=== PATIENT | male | born 1950 | race African-American/Black ===

== ENCOUNTER 2019-06-12 13:15 | Inpatient (IN) | payer OTHER | END 2019-06-16 12:22 | disposition home or self-care (01) | LOC: ER 13:15 → TELE-WESTW 20:31 → TELE 13:16 → TELE-WESTW 20:33 | DX: D50.9 Iron deficiency anemia, unspecified (principal); E44.0 Moderate protein-calorie malnutrition; K76.6 Portal hypertension; N18.3 Chronic kidney disease, stage 3 (moderate); E11.22 Type 2 diabetes mellitus with diabetic chronic kidney disease; I12.9 Hypertensive chronic kidney disease with stage 1 through stage 4 chronic kidney disease, or unspecified chronic kidney disease; M19.90 Unspecified osteoarthritis, unspecified site; M10.9 Gout, unspecified; K31.89 Other diseases of stomach and duodenum; F10.10 Alcohol abuse, uncomplicated ==

== ENCOUNTER 2019-10-04 09:02 | Inpatient (IN) | payer OTHER ==
[~2019-10-04] VITALS: Ht 167.6 cm; Wt 66.5 kg
[~2019-10-04 09:02] MED LIST: ALL100T PO; FERR325T20 PO; HYDR-4072 PO; HYDR-4296 PO; OMEP20TA PO
[2019-10-04 10:35] LABS: Basophils # (auto) 0.1 uL; Basophils % (auto) 0.8 % (0.0-2.0); Eosinophils # (auto) 0.1 uL; Eosinophils % (auto) 0.7 % (0.0-7.0); Hemoglobin 8.5 g/dL (13.5-17.5); Lymphocytes # (auto) 2.4 uL; Lymphocytes % (auto) 28.4 % (10.0-50.0); Mean Corpuscular Hemoglobin 31.8 pg (28.0-32.0); Mean Corpuscular Hgb Conc. 32.6 g/dL (32.0-36.0); Mean Corpuscular Volume 97.3 fL (80.0-100.0); Monocytes # (auto) 0.6 uL; Monocytes % (auto) 6.6 % (0.0-12.0); Neutrophils # (auto) 5.4 uL; Neutrophils % (auto) 63.5 % (37.0-80.0); Nucleated Red Blood Cells % 0.2 %; Platelet Count (auto) 148 10^3/uL (140-450); Red Blood Cells 2.67 10^6/uL (4.5-5.90); Red Cell Distribution Width 16.4 % (11.8-14.3); White Blood Cell 8.5 10^3/uL (4.4-10.8)
[2019-10-04 10:51] LABS: Albumin 1.7 g/dL (3.4-5.0); BUN/Creatinine Ratio 8.1; Calcium 7.7 mg/dL (8.5-10.1); Potassium 3.2 mmol/L (3.5-5.1)
[2019-10-04 10:52] LABS: Blood Alcohol < 3.0 mg/dL (0-5); Magnesium 1.6 mg/dL (1.6-2.6)
[2019-10-04 10:54] LABS: Bilirubin, Total 1.4 mg/dL (0.2-1.0); Total Protein 6.1 g/dL (6.4-8.2)
[2019-10-04 11:32] LABS: Urine Bacteria MOD /hpf (None Seen); Urine Blood Negative /uL (Negative); Urine Hyaline Cast MANY /lpf (0 - 2); Urine Mucus FEW (None Seen); Urine Specific Gravity 1.013 (1.001-1.035); Urine WBC 69 /hpf (0 - 3)
[2019-10-04 11:43] LABS: Amphetamine Screen, Urine NEGATIVE (NEGATIVE); Barbiturate Scree,Urine NEGATIVE (NEGATIVE); Benzodiazephine Screen, Urine NEGATIVE (NEGATIVE); Cannabinoid Screen, Urine NEGATIVE (NEGATIVE); Cocaine Screen, Urine NEGATIVE (NEGATIVE); Opiate Scree,Urine POSITIVE (NEGATIVE); Phencyclidine Screen, Urine NEGATIVE (NEGATIVE)
[2019-10-04] MEDS ORDERED: LEVOFLOXACIN 750MG 150 ML IV ONE (13:00)
[2019-10-04] MEDS ORDERED: POTASSIUM EFFERVESENT TAB 25 MEQ PO ONE (14:30)
[2019-10-04] MEDS ORDERED: LACTULOSE 20Gm/30ML SOLN PO PRN (14:30)
[2019-10-04] MEDS ORDERED: PROMETHAZINE HCL 25 MG/ML 1ML IV PRN (14:30)
[2019-10-04] MEDS ORDERED: NITROGLYCERIN 0.4 MG SL TAB SL PRN (14:30)
[2019-10-04] MEDS ORDERED: ALBUTEROL SULF 2.5 MG/0.5ML(0.5%) NEB SOLN NEB PRN (14:30)
[2019-10-04] MEDS: LACTULOSE 20Gm/30ML SOLN PO SCH ×2 (14:30→21:16)
[2019-10-04] MEDS ORDERED: MORPHINE SULF INJ 2 MG/ML SYRINGE 1ML IV PRN (14:30)
[2019-10-04] MEDS ORDERED: DEXTROSE (50%) 50ML SYRG IV PRN (14:30)
[2019-10-04] MEDS ORDERED: MORPHINE SULFATE 4 MG/ML SYR/VIAL IV PRN ×2 (14:30)
[2019-10-04] MEDS: SODIUM CHLORIDE 0.9% 1,000 ML IV SCH (14:45)
[2019-10-04] MEDS ORDERED: SODIUM CHLORIDE 0.9% 1,000 ML IV ONE (14:45)
[2019-10-04 14:56] LABS: Amylase 15 U/L (25-115); Lipase < 10 U/L (73-393)
[2019-10-04 15:08] LABS: INR 1.77 (0.9-1.15); Partial Thromboplastin Time 38.3 sec (23.64-32.05)
[2019-10-04 15:21] VITALS: BP 124/76
[2019-10-04] MEDS: metroNIDAZOLE 500 MG TAB PO SCH ×2 (16:22→21:17)
--- NOTE | 2019-10-04 18:10 | NUR ---
Telemetry admit from ER Patient admitted to Telemetry unit after SBAR received from [facility]. Patient oriented to primary RN, unit, room, bed, and unit policies regarding patient care and visiting hours. Patient now on continuous telemetry monitoring, tele box #78 and telemetry reading on arrival to unit is SR in the 90's.Bed in lowest, locked position with side rails up x2. Fall precautions in place and call light within reach. Encouraged patient to call if they need something, verbalized understanding. All questions and concerns addressed.Will continue to monitor patient Q1hr/PRN.
[2019-10-04] MEDS: InsuLIN REG 1unit/0.01ml Soln (100units/ml) SC SCH ×2 (18:23→21:18)
[2019-10-04] MEDS: ACCU-CHEK COMFORT CURVE STRIP VI SCH ×2 (18:23→21:18)
[2019-10-04] MEDS: ALBUTEROL SULF 2.5 MG/0.5ML(0.5%) NEB SOLN NEB SCH (18:37)
[2019-10-04] MEDS ORDERED: GABA300C10 PO (18:55)
--- NOTE | 2019-10-04 19:10 | NUR ---
WOUND PHOTO Wound photos taken.
--- NOTE | 2019-10-04 19:20 | NUR ---
Opening Shift Note Assumed care of patient, awake and alert. No S/S of distress/SOB or pain. Instructed on POC and to call for assist if needed. Call light placed in reach of patient and explained. Patient is currently laying in bed with the rails up x2, bed is locked in the lowest position. Will continue to monitor.
--- NOTE | 2019-10-04 19:25 | NUR ---
CLOSING NOTE Endorsed care of patient to NOC Shakeel GREGORY.
[2019-10-04] MEDS ORDERED: INFLUENZA QUAD 2019-2020 0.5ml SYRG IM ONE (19:30)
[2019-10-04] MEDS: CARVEDILOL 3.125 MG TAB PO SCH (21:17)
[2019-10-04 22:00] VITALS: BP 110/66
--- NOTE | 2019-10-05 00:09 | NUR ---
PT REFUSED MED NEB AT THIS TIME, REQUESTED TO CONTINUE TO SLEEP. NO DISTRESS NOTED AT THIS TIME.
[2019-10-05] MEDS: SODIUM CHLORIDE 0.9% 1,000 ML IV SCH ×2 (00:34→08:46)
[2019-10-05] MEDS: LACTULOSE 20Gm/30ML SOLN PO SCH ×3 (02:30→13:06)
[2019-10-05 05:00] VITALS: BP 103/64
[2019-10-05 05:49] LABS: Potassium 3.4 mmol/L (3.5-5.1)
[2019-10-05 05:52] LABS: Albumin 1.4 g/dL (3.4-5.0); BUN/Creatinine Ratio 9.4; Bilirubin, Total 0.9 mg/dL (0.2-1.0)
[2019-10-05] MEDS: metroNIDAZOLE 500 MG TAB PO SCH ×2 (06:00→13:06)
[2019-10-05] MEDS: ACCU-CHEK COMFORT CURVE STRIP VI SCH ×3 (06:06→18:11)
[2019-10-05] MEDS: InsuLIN REG 1unit/0.01ml Soln (100units/ml) SC SCH ×3 (06:06→17:00)
[2019-10-05] MEDS: ALBUTEROL SULF 2.5 MG/0.5ML(0.5%) NEB SOLN NEB SCH ×4 (06:13→19:14)
--- NOTE | 2019-10-05 06:41 | NUR ---
Scheduled 12 lead EKG performed and placed in chart.
[2019-10-05 07:21] LABS: Basophils # (auto) 0 uL; Basophils % (auto) 0.6 % (0.0-2.0); Eosinophils # (auto) 0 uL; Eosinophils % (auto) 0.8 % (0.0-7.0); Hematocrit 21.5 % (41.0-53.0); Hemoglobin 7.2 g/dL (13.5-17.5); Lymphocytes # (auto) 1.6 uL; Lymphocytes % (auto) 47.2 % (10.0-50.0); Mean Corpuscular Hemoglobin 31.8 pg (28.0-32.0); Mean Corpuscular Hgb Conc. 33.3 g/dL (32.0-36.0); Mean Corpuscular Volume 95.6 fL (80.0-100.0); Monocytes # (auto) 0 uL; Monocytes % (auto) 1.4 % (0.0-12.0); Neutrophils # (auto) 1.7 uL; Nucleated Red Blood Cells % 0.7 %; Platelet Count (auto) 123 10^3/uL (140-450); Red Blood Cells 2.25 10^6/uL (4.5-5.90); Red Cell Distribution Width 15.8 % (11.8-14.3); White Blood Cell 3.4 10^3/uL (4.4-10.8)
--- NOTE | 2019-10-05 08:51 | NUR ---
LOVENOX HELD, PLATELETS 123.
[2019-10-05 09:00] VITALS: BP 113/71
[2019-10-05] MEDS ORDERED: cefTRIAXone 1GM/50ML D5W 50 ML IV SCH (09:00)
[2019-10-05] MEDS ORDERED: ASPirin 81 mg TAB PO SCH (10:00)
[2019-10-05] MEDS ORDERED: AZITHROMYCIN 500MG/ 250ML 250 ML IV SCH (10:00)
[2019-10-05] MEDS ORDERED: ENOXAPARIN SOD 30 MG/0.3 ML SYRINGE SC SCH (10:00)
[2019-10-05] MEDS: CARVEDILOL 3.125 MG TAB PO SCH (10:08)
--- NOTE | 2019-10-05 10:19 | NUR ---
MEDICAL DECISIONS WAS CALLED INTO PATIENT ROOM BY ALISSA FATIMA. ALISSA FATIMA REPORTS PATIENT IS STILL LEGALLY TO MELISA AWAD, BUT WOULD LIKE HIS SON ODALYS AWAD TO MAKE ALL OF HIS MEDICAL DECISIONS. ALISSA ASKED PATIENT WHO HE WOULD LIKE TO MAKE HIS MEDICAL DECISIONS AGAIN, PATIENT REPORTS HE WANTS HIS SON ODALYS TO MAKE ALL HIS MEDICAL DECISIONS. MELISA AND ODALYS BOTH AT BEDSIDE. ODALYS AND MELISA CONFIRMED PATIENT WISHES.
[2019-10-05 11:25] LABS: Sodium Urine 19 mmol/L (40-220)
[2019-10-05 11:27] LABS: Creatinine, Urine 206 mg/dL (30.0-125.0)
--- NOTE | 2019-10-05 11:38 | NUR ---
DR REID SAW PATIENT AND DISCUSSED POC. NOTIFIED MD PT HGB 7.2. NOTIFIED MD PT HAS NECK PAIN. SENT URINE SAMPLE FOR DR CORTEZ. DR REID SPOKE WITH PATIENT FAMILY. MD REPORTS HE WILL PUT IN ORDERS.
--- NOTE | 2019-10-05 11:59 | NUR ---
Nutrition Consult/assessment Notes please see attached link for complete assessment Est. Needs BW 64 [id number] kcal (25-30 kcal/kgBW), 38-51 gms pro (0.6-0.8 gms/kgBW r/t elev ammonia). Will continue to monitor pertinent labs and reassess nutrient need prn Addendum: 10/05/19 at [address] Amended: Links added.
[2019-10-05] MEDS ORDERED: ALBUMIN 25% 50 ML IV SCH (12:15)
[2019-10-05] MEDS ORDERED: FUROSEMIDE 40 MG/4 ML VIAL IV ONE (12:15)
--- NOTE | 2019-10-05 12:28 | NUR ---
WOUND CARE NOTE: Wound care in to see patient per wound care request regarding wounds that are noted present on admission. Bedside nurse took photograph of patient's wounds upon admission for reference. Patient is 68 y/o male with admitting diagnosis of Hepatic Encephalopathy. Patient with history of DM, GERD, Gout, htn. Patient is resting in bed in Rm. 292A. Patient is awake,alert and able to verbalize needs. He's in no stated pain at this time and he appears to be in no pain using Scherer Joyner Faces Pain Scale. Patient needs assistance in turning and repositioning. His Vinnie score is 16. Skin/wound assessment done with assistance of patient's nurse, COLT Doyle. Patient's Lt and Rt. 2nd toe has dry/scabbed DFU, no drainage/odor noted,left open to air. Patient's sacrum has non-blanchable dark redness with small (0.5x0.5cm ) open partial thickness wound to Rt sacrum, consistent with Stage 3 pressure injury. On reports, patient found in his apartment, covered with urine and feces. mike care given, applied Z Guard cream and covered sacrum with Opti foam sacral dressing. Repositioned patient for comfort, patient tolerated well. Bed in low position, call light within reach, all safety precautions in placed. Family education given regarding skin/wound care, verbalized understanding. RECOMMENDATION: Daily/PRN dressing change to Lt and Rt 2nd toe resolving wound; BID/PRN cleaning and application of Z Guard cream to sacral, buttocks per MD order, Dietary consult, frequent turning and repositioning schedule as condition permits,redistribute pressure points with pillows, elevate heels on pillows,continue monitoring by wound care while patient is hospitalized. Addendum: 10/05/19 at 1654 by Jenelle Dow RN Amended: Links added.
--- NOTE | 2019-10-05 12:39 | NUR ---
SPOKE WITH DR CALDERON, NOTIFIED OF ABG RESULTS AND PO2 LEVEL. AWARE. PT TAKEN OFF . REPORTS TO CALL HER WITH RESULTS. Addendum: 10/05/19 at 1241 by JERED RUIZ RN WRONG PATIENT.
[2019-10-05] MEDS ORDERED: LEVOFLOXACIN 500MG 100 ML IV SCH (13:15)
[2019-10-05 13:17] VITALS: BP 95/51
--- NOTE | 2019-10-05 14:34 | NUR ---
I called [facility] [phone] and left message for department asking for assistance in transferring their patient back in network.
[2019-10-05] MEDS ORDERED: FOLIC ACID 1 MG, MULTIPLE VITAMIN 10 ML, MAGNESIUM SULF SDV 50% 8 MEQ, THIAMINE INJ 100... INJ SCH ×5 (15:30)
--- NOTE | 2019-10-05 15:45 | NUR ---
DR CARTER SAW PATIENT, NEW ORDERS FOR ECHO AND STRESS TEST, WILL CONTINUE TO MONITOR.
--- NOTE | 2019-10-05 16:14 | NUR ---
assessment re: ss consult lives alone, needs assistance Patient is a 68 year old male who is alert and oriented. Prior to admission patient lived home alone and needed assistance. Per patient he will need more help at home. Patient has a fww for home use. Patients son and are at bedside. Patient does not live with his Rosemary. Patient and Rosemary are . Patient informed me and RN Maribeth that if he cannot make decisions he wants his son Vitor to make decisions for him. I will provide patient with an advanced directive. Patient has an order to transfer in network. Patient agrees to transfer. Patients PCP is Dr Woods at [facility]. Patient makes 1,700 per month. Patient informed me he would like SNF [facility]hab [facility]. I informed patient he has a right to speak to a social media director regarding all care. I informed patient he has a right to participate in any and all discharge planning. Patient does not have a POA and advanced directive. I have offered patient information on POA and advanced directives. I informed the patient the advantages and benefits of having an Advanced Directive. Patient verbalized understanding and agreed to discharge plan. Addendum: 10/05/19 at 1619 by Mili CARTWRIGHT Amended: Links added.
[2019-10-05 17:00] VITALS: BP 94/55
--- NOTE | 2019-10-05 17:20 | NUR ---
I called [facility] ([facility]) [phone] and spoke with Jay-provided him with contact information for Dr. Crane as well as the nurse's station. I also provided him with authorization number provided to me by Cyndy at [facility] [id number].
--- NOTE | 2019-10-05 17:22 | NUR ---
I called [facility] (spoke with Davey) and placed them on will call pending transfer to [facility] auth number is [id number].
--- NOTE | 2019-10-05 19:01 | NUR ---
EDUCATED PT, PT HAS MALNUTRITION AND NEEDS THE VITAMINS AND NUTRIENTS, PT STILL REFUSED.
--- NOTE | 2019-10-05 19:01 | NUR ---
PT REFUSING VITAMIN BAG, PT REPORTS IT WILL INCREASE HIS BLOOD SUGAR.
--- NOTE | 2019-10-05 19:07 | NUR ---
RAISSA PERKINS CALLED, PT HAS A BED AT [facility], PT GOING TO ROOM [address] BED A, DR HILLARY MATHEWS ACCEPTING. PT AND FAMILY NOTIFIED. NO DC OR TRANSFER ORDERS. PAGED DR GEORGES FOR DC ORDERS. PUT IN IMAGE TRANSFER REQUEST, AWAITING DISC.
--- NOTE | 2019-10-05 19:20 | NUR ---
Opening Shift Note Assumed care of patient, awake and alert. No S/S of distress/SOB or pain. Instructed on POC and to call for assist if needed. Call light placed in reach of patient and explained. Patient is currently laying in bed with the rails up x2, bed is locked in the lowest position. Pt made aware of pending transfer to [facility]. Will continue to monitor.
--- NOTE | 2019-10-05 21:20 | NUR ---
Received telephone orders from Dr Beltran for medication transfer summary.
--- NOTE | 2019-10-05 21:30 | NUR ---
Made arrangements for [facility] transport. Julissa from [facility] gave ETA of greater than 2 hours.
--- NOTE | 2019-10-05 21:40 | NUR ---
Called report to Lizzy GREGORY at [facility].
[2019-10-05 21:45] VITALS: BP 94/57
[2019-10-05 22:00] VITALS: BP 94/57
[2019-10-05] MEDS ORDERED: PANTOPRAZOLE 40 MG TAB PO SCH (22:00)
--- NOTE | 2019-10-05 22:30 | NUR ---
DC Wound Photos taken
--- NOTE | 2019-10-05 23:15 | NUR ---
Pt taken by [facility] after all paperwork signed by patient, tele monitor was removed and patient was cleaned. Pt shows no s/s of distress upon leaving.
== END 2019-10-05 23:47 | disposition short-term general hospital (02) | DRG 441 ==
LOC: EDUNIT# 09:02 → EDBD 09:02 → ER 09:13 → TELE 09:14 → TELE-WESTW 18:17
PROVIDERS: ADMIT Internal Medicine; ATTEND Internal Medicine
DX: K72.90 Hepatic failure, unspecified without coma (principal); J18.9 Pneumonia, unspecified organism; N39.0 Urinary tract infection, site not specified; N17.9 Acute kidney failure, unspecified; E46 Unspecified protein-calorie malnutrition; I13.0 Hypertensive heart and chronic kidney disease with heart failure and stage 1 through stage 4 chronic kidney disease, or unspecified chronic kidney disease; I50.9 Heart failure, unspecified; E87.6 Hypokalemia; K76.0 Fatty (change of) liver, not elsewhere classified; D63.8 Anemia in other chronic diseases classified elsewhere; E11.22 Type 2 diabetes mellitus with diabetic chronic kidney disease; E86.0 Dehydration; K21.0 Gastro-esophageal reflux disease with esophagitis; N18.9 Chronic kidney disease, unspecified; R62.7 Adult failure to thrive; M10.9 Gout, unspecified; M19.90 Unspecified osteoarthritis, unspecified site; M47.812 Spondylosis without myelopathy or radiculopathy, cervical region; K21.9 Gastro-esophageal reflux disease without esophagitis; F10.20 Alcohol dependence, uncomplicated; Y90.9 Presence of alcohol in blood, level not specified; Z60.2 Problems related to living alone; K74.60 Unspecified cirrhosis of liver; G89.29 Other chronic pain; Z83.3 Family history of diabetes mellitus; Z87.891 Personal history of nicotine dependence; Z90.49 Acquired absence of other specified parts of digestive tract; Z79.899 Other long term (current) drug therapy; Z68.23 Body mass index [BMI] 23.0-23.9, adult
CPT/HCPCS: 36415; 71045; 76700; 80053; 80307; 80320; 81001; 82140; 82150; 82550; 82570; 82962; 83036; 83605; 83690; 83735; 83880; 83930; 84300; 84443; 84484; 84550; 85025; 85379; 85610; 85652; 85730; 86141; 87040; 93005; 93970; 94640; 96361; 96365; 96375; G0378; J0696; J1956

== ENCOUNTER 2020-01-07 21:33 | Inpatient (IN) | payer OTHER ==
[~2020-01-07] VITALS: Ht 167.6 cm; Wt 80.3 kg
[~2020-01-07 21:33] MED LIST changes: +GABA300C10 PO
[2020-01-07] MEDS ORDERED: SODIUM CHLORIDE 0.9% 500 ML IVB ONE (21:42)
[2020-01-07 22:30] LABS: Basophils # (auto) 0 uL; Basophils % (auto) 0.5 % (0.0-2.0); Eosinophils # (auto) 0 uL; Eosinophils % (auto) 0.4 % (0.0-7.0); Hematocrit 28.4 % (41.0-53.0); Hemoglobin 9.3 g/dL (13.5-17.5); Lymphocytes # (auto) 0.6 uL; Lymphocytes % (auto) 18.5 % (10.0-50.0); Mean Corpuscular Hemoglobin 30.7 pg (28.0-32.0); Mean Corpuscular Hgb Conc. 32.8 g/dL (32.0-36.0); Mean Corpuscular Volume 93.6 fL (80.0-100.0); Monocytes # (auto) 0.1 uL; Monocytes % (auto) 2.3 % (0.0-12.0); Neutrophils # (auto) 2.6 uL; Neutrophils % (auto) 78.3 % (37.0-80.0); Nucleated Red Blood Cells % 0.2 %; Platelet Count (auto) 121 10^3/uL (140-450); Red Blood Cells 3.04 10^6/uL (4.5-5.90); White Blood Cell 3.4 10^3/uL (4.4-10.8)
[2020-01-07 22:46] LABS: Alanine Aminotransferase 19 U/L (16-61); Albumin 1.2 g/dL (3.4-5.0); Anion Gap 8 (5-15); Aspartate Aminotransferase 68 U/L (15-37); BUN/Creatinine Ratio 12.2; Blood Alcohol < 3.0 mg/dL (0-5); Blood Urea Nitrogen 18 mg/dL (7-18); Calcium 7.6 mg/dL (8.5-10.1); Carbon Dioxide 25 mmol/L (21-32); Chloride 102 mmol/L (98-107); GFR African American 61 mL/min; GFR Non-African American 51 mL/min; Glucose 149 mg/dL (74-106); Magnesium 1.9 mg/dL (1.6-2.6); Potassium 3.6 mmol/L (3.5-5.1); Sodium 135 mmol/L (136-145)
[2020-01-07 22:48] LABS: Lactic Acid w/Reflex 2.6 mmol/L (0.4-2.0)
[2020-01-07 22:49] LABS: INR 1.95 (0.9-1.15); Partial Thromboplastin Time 53.1 sec (23.64-32.05)
[2020-01-07 22:51] LABS: Alkaline Phosphatase 131 U/L (45-117); Bilirubin, Total 0.8 mg/dL (0.2-1.0); Total Protein 5.2 g/dL (6.4-8.2)
[2020-01-08] MEDS ORDERED: SODIUM CHLORIDE 0.9% 1,000 ML IV ONE (01:15)
[2020-01-08] MEDS ORDERED: PIPERACILLIN-TAZOB 3.375GM 100 ML IV ONE (01:15)
[2020-01-08] MEDS ORDERED: COLCHICINE 0.6 MG CAP PO ONE (03:30)
[2020-01-08] MEDS ORDERED: SODIUM CHLORIDE 0.9% 1,000 ML IV SCH (04:51)
[2020-01-08] MEDS ORDERED: MORPHINE SULFATE 4 MG/ML SYR/VIAL IV PRN (05:00)
[2020-01-08] MEDS ORDERED: HYDROcodone-ACET 5/325MG TAB PO PRN (05:00)
[2020-01-08] MEDS ORDERED: ONDANSETRON HCL 4 MG/2 ML VIAL IV PRN (05:00)
[2020-01-08] MEDS ORDERED: DOCUSATE SOD 100 MG CAP PO PRN (05:00)
[2020-01-08] MEDS ORDERED: ACETAMINOPHEN 325 MG TAB PO PRN (05:00)
[2020-01-08] MEDS ORDERED: HYDROmorphone HCL 2 MG/ML VL IV PRN (05:00)
[2020-01-08] MEDS ORDERED: ALBUMIN 5% 50 ML IV ONE (05:45)
[2020-01-08] MEDS ORDERED: ACETAMINOPHEN 650 mg PER 20 mL UD PO PRN (06:30)
[2020-01-08] MEDS ORDERED: NOREPINEPHRINE 8 MG/250ML KIT 250 ML IV ONE (07:06)
[2020-01-08] MEDS: NOREPINEPHRINE 8 MG/250ML KIT 250 ML IV SCH (07:26)
[2020-01-08 08:06] LABS: Basophils # (auto) 0 uL; Basophils % (auto) 0.2 % (0.0-2.0); Eosinophils # (auto) 0 uL; Eosinophils % (auto) 0.3 % (0.0-7.0); Hematocrit 34.5 % (41.0-53.0); Lymphocytes # (auto) 0.7 uL; Lymphocytes % (auto) 25.7 % (10.0-50.0); Mean Corpuscular Hemoglobin 30.1 pg (28.0-32.0); Mean Corpuscular Volume 103.8 fL (80.0-100.0); Monocytes # (auto) 0.1 uL; Monocytes % (auto) 2.1 % (0.0-12.0); Neutrophils % (auto) 71.7 % (37.0-80.0); Nucleated Red Blood Cells % 0.9 %; Platelet Count (auto) 127 10^3/uL (140-450); Red Blood Cells 3.32 10^6/uL (4.5-5.90); Red Cell Distribution Width 17.8 % (11.8-14.3); White Blood Cell 2.8 10^3/uL (4.4-10.8)
[2020-01-08 08:18] LABS: Calcium 7.8 mg/dL (8.5-10.1); Potassium 3.4 mmol/L (3.5-5.1)
[2020-01-08 08:21] LABS: BUN/Creatinine Ratio 11.5
[2020-01-08] MEDS ORDERED: POTASSIUM CHL 20MEQ/100ML 100 ML IV ONE (11:00)
[2020-01-08] MEDS: VASOPRESSIN 50 UNITS in D5W 5% 247.5 ML IV SCH (11:00)
[2020-01-08] MEDS ORDERED: LACTULOSE 20Gm/30ML SOLN PO SCH (11:00)
[2020-01-08] MEDS ORDERED: DEXTROSE 50% SYRINGE 50 ML IV ONE (11:12)
[2020-01-08] MEDS ORDERED: DEXTROSE (50%) 50ML SYRG IV ONE (11:30)
[2020-01-08] MEDS: D5W/SOD CHLO 0.9% 1,000 ML IV SCH (11:48)
[2020-01-08] MEDS: ALBUMIN 25% 100 ML IV SCH ×2 (11:53→20:19)
[2020-01-08] MEDS: PIPERACILLIN-TAZOB 2.25GM 50 ML IV SCH ×2 (14:15→18:22)
[2020-01-08] MEDS: LACTULOSE 20Gm/30ML SOLN PO SCH (22:00)
[2020-01-09] VITALS (8 sets, daily range): BP systolic 108–134; BP diastolic 68–83
[2020-01-09] MEDS: PIPERACILLIN-TAZOB 2.25GM 50 ML IV SCH ×4 (00:54→18:10)
[2020-01-09] MEDS: D5W/SOD CHLO 0.9% 1,000 ML IV SCH ×2 (01:48→14:05)
[2020-01-09] MEDS: ALBUMIN 25% 100 ML IV SCH ×3 (03:14→12:18)
[2020-01-09 06:58] LABS: Basophils # (auto) 0 uL; Eosinophils # (auto) 0 uL; Lymphocytes # (auto) 2.2 uL; Monocytes # (auto) 0.8 uL; Monocytes % (auto) 4.5 % (0.0-12.0)
[2020-01-09] MEDS: LACTULOSE 20Gm/30ML SOLN PO SCH (07:00)
[2020-01-09 07:01] LABS: Lymphocytes % (auto) 13.1 % (10.0-50.0); Mean Corpuscular Hemoglobin 30.5 pg (28.0-32.0); Mean Corpuscular Hgb Conc. 32.6 g/dL (32.0-36.0); Mean Corpuscular Volume 93.6 fL (80.0-100.0); Neutrophils # (auto) 14.1 uL; Neutrophils % (auto) 82.4 % (37.0-80.0); Platelet Count (auto) 89 10^3/uL (140-450); Red Blood Cells 2.24 10^6/uL (4.5-5.90); Red Cell Distribution Width 16.6 % (11.8-14.3); White Blood Cell 17.1 10^3/uL (4.4-10.8)
[2020-01-09 07:06] LABS: Hemoglobin 6.8 g/dL (13.5-17.5)
[2020-01-09 07:13] LABS: INR 2.03 (0.9-1.15)
[2020-01-09 07:16] LABS: Alcohol, Urine < 3.0 mg/dL (0-5); Amphetamine Screen, Urine NEGATIVE (NEGATIVE); Barbiturate Scree,Urine NEGATIVE (NEGATIVE); Benzodiazephine Screen, Urine NEGATIVE (NEGATIVE); Cannabinoid Screen, Urine NEGATIVE (NEGATIVE); Cocaine Screen, Urine NEGATIVE (NEGATIVE); Opiate Scree,Urine NEGATIVE (NEGATIVE); Phencyclidine Screen, Urine NEGATIVE (NEGATIVE)
[2020-01-09 07:16] LABS: Albumin 2.3 g/dL (3.4-5.0); Calcium 7.3 mg/dL (8.5-10.1); Potassium 3.4 mmol/L (3.5-5.1)
[2020-01-09 07:19] LABS: Urine Bacteria MANY /hpf (None Seen); Urine Blood 2+ /uL (Negative); Urine Hyaline Cast MOD /lpf (0 - 2); Urine Mucus FEW (None Seen); Urine WBC 72 /hpf (0 - 3)
[2020-01-09 07:20] LABS: BUN/Creatinine Ratio 11.5; Bilirubin, Total 0.9 mg/dL (0.2-1.0); Total Protein 5.4 g/dL (6.4-8.2)
[2020-01-09] MEDS: NOREPINEPHRINE 8 MG/250ML KIT 250 ML IV SCH (08:30)
[2020-01-09 10:12] LABS: Hemoglobin 7.4 g/dL (13.5-17.5)
[2020-01-09 10:14] LABS: Hematocrit 23.1 % (41.0-53.0)
[2020-01-09] MEDS ORDERED: SODIUM CHLORIDE 0.9% 1,000 ML IV ONE (10:15)
[2020-01-09] MEDS: VASOPRESSIN 50 UNITS in D5W 5% 247.5 ML IV SCH (10:37)
[2020-01-09] MEDS: LACTULOSE 20Gm/30ML SOLN PR SCH ×4 (11:56→18:47)
--- NOTE | 2020-01-09 13:35 | NUR ---
AIR MATTRESS: Air mattress ordered at [facility],Ref # [id number]; ETA [phone], Call [facility] if need to follow up at [phone] Addendum: 01/09/20 at 1337 by Jenelle Dow RN Amended: Links added.
[2020-01-09 13:58] LABS: Lactic Acid w/Reflex 3.2 mmol/L (0.4-2.0)
[2020-01-09] MEDS ORDERED: LACTULOSE 20Gm/30ML SOLN NG SCH (17:00)
[2020-01-09] MEDS ORDERED: PHYTONADIONE (VIT K)10 MG/ML 1ML VIAL SUBCUT ONE (19:45)
[2020-01-09] MEDS: BUMETANIDE INJECTION 25 MG in GIVE UN-DILUTED 0 ML IV SCH (20:55)
[2020-01-09] MEDS ORDERED: PHYTONADIONE (VIT K)10 MG/ML 1ML VIAL IV SCH (21:00)
[2020-01-09] MEDS: phytonadione 10 MG in SODIUM CHL 0.9% 50 ML IV SCH (21:57)
[2020-01-10] MEDS: PIPERACILLIN-TAZOB 2.25GM 50 ML IV SCH ×2 (00:14→05:48)
[2020-01-10] MEDS: D5W/SOD CHLO 0.9% 1,000 ML IV SCH ×2 (03:00→16:28)
[2020-01-10 04:42] LABS: Basophils # (auto) 0 uL; Basophils % (auto) 0.2 % (0.0-2.0); Eosinophils # (auto) 0 uL; Hematocrit 30.8 % (41.0-53.0); Hemoglobin 9.9 g/dL (13.5-17.5); Lymphocytes % (auto) 5.1 % (10.0-50.0); Mean Corpuscular Hemoglobin 30.2 pg (28.0-32.0); Mean Corpuscular Hgb Conc. 32.2 g/dL (32.0-36.0); Mean Corpuscular Volume 93.8 fL (80.0-100.0); Monocytes % (auto) 5.4 % (0.0-12.0); Neutrophils # (auto) 16.8 uL; Neutrophils % (auto) 89.3 % (37.0-80.0); Platelet Count (auto) 77 10^3/uL (140-450); Red Blood Cells 3.29 10^6/uL (4.5-5.90); Red Cell Distribution Width 16.6 % (11.8-14.3); White Blood Cell 18.8 10^3/uL (4.4-10.8)
[2020-01-10 04:55] LABS: INR 1.64 (0.9-1.15)
[2020-01-10 05:02] LABS: Albumin 2.9 g/dL (3.4-5.0); Calcium 7.8 mg/dL (8.5-10.1)
[2020-01-10 05:04] LABS: Bilirubin, Total 1.6 mg/dL (0.2-1.0); Lactic Acid w/Reflex 2.7 mmol/L (0.4-2.0); Total Protein 6.1 g/dL (6.4-8.2)
[2020-01-10 05:10] LABS: Potassium 2.5 mmol/L (3.5-5.1)
[2020-01-10] MEDS: POTASSIUM CHL 20MEQ/100ML 100 ML IV SCH ×5 (05:48→14:15)
[2020-01-10] MEDS: LACTULOSE 20Gm/30ML SOLN PR SCH ×4 (06:42→17:35)
[2020-01-10] MEDS: NOREPINEPHRINE 8 MG/250ML KIT 250 ML IV SCH ×2 (07:30→10:30)
[2020-01-10 09:15] LABS: Hepatitis B Surface Antibody Negative
[2020-01-10 09:22] LABS: Hepatitis A Total Antibody Positive
[2020-01-10 09:43] LABS: Hepatitis B Surface Antigen Negative (Negative); Hepatitis C Antibody Negative (Negative)
[2020-01-10 09:45] LABS: Hepatitis B Core Total AB Positive
[2020-01-10] MEDS ORDERED: cefTRIAXone 1GM/50ML D5W 50 ML IV ONE (10:15)
--- NOTE | 2020-01-10 10:38 | NUR ---
WOUND CARE NOTE: Wound care into see patient per wound care request regarding multiple skin integrity issue that are noted present on admission. Patient is 69 years old male with admitting diagnosis of ALOC, Suspected Hepatic Encephalopathy. Patient with history of DM, GERD, gout, Htn. Patient is resting on air bed in ER bed #8. Patient's eyes are closed, respirations even and unlabored. Patient appears to be in no pain using Scherer Joyner Faces Pain Scale. Patient is max assist in turning and repositioning and his Vinnie score is 12. Skin/wound assessment done with the assistance of patient's nurse, COLT Barrera. Patient noted with large DTI (Deep Tissue Injury) to sacrum measuring 49s75ol. Another intact DTI noted on patient's Rt medial heel measuring 4.5x5cm. Wounds are dark maroon/dark purple, soft boggy to touch, no drainage/odor noted. Vicky care given, applied Z Guard cream to sacrum and covered sacrum with Opti foam sacral dressing. Non-blanchable redness (Stage 1 pressure injuries) noted on patient's medial back at spine area. Intact pink collagen scar tissue noted on his lower back and dry resolving skin tear noted to his L anterior caro. Patient's bilateral knee noted with abrasions. Swelling noted on patient's L elbow and multi dry scabbed wounds noted to his L #2, L#3 dorsal toes and Rt#2 dorsal toe; area is clean and dry, left open to air.On reports, patient found by his family unresponsive on the the floor of his house. Photograph of mentioned wounds are taken for reference. Patient tolerated well, repositioned for comfort facing his Rt. side, redistributed pressure points with pillows. RECOMMENDATION: Nursing to continue with BID/PRN cleaning and application Z Guard cream to sacral, buttocks per MD order, Dietary consult,frequent turning and repositioning schedule as condition permits, redistribute pressure points with pillows,elevate heels on pillows, air bed, continue monitoring by wound care while patient is hospitalized. Addendum: 01/10/20 at 1432 by Jenelle Dow RN Amended: Links added.
[2020-01-10] MEDS: VASOPRESSIN 50 UNITS in D5W 5% 247.5 ML IV SCH (11:00)
[2020-01-10] MEDS: MAGNESIUM SULFATE 1GM/100ML 100 ML IV SCH ×2 (12:42→13:36)
[2020-01-10] MEDS: BUMETANIDE INJECTION 25 MG in GIVE UN-DILUTED 0 ML IV SCH (20:57)
[2020-01-10] MEDS: phytonadione 10 MG in SODIUM CHL 0.9% 50 ML IV SCH (21:20)
[2020-01-11] MEDS: LACTULOSE 20Gm/30ML SOLN PR SCH ×2 (00:42→06:00)
[2020-01-11] MEDS: D5W/SOD CHLO 0.9% 1,000 ML IV SCH (05:40)
[2020-01-11] MEDS ORDERED: cefTRIAXone 1GM/50ML D5W 50 ML IV SCH (09:00)
[2020-01-11] MEDS ORDERED: POTASSIUM CHLORIDE 60 MEQ, LIDOCAINE 1% (LOCAL ANESTH.) 6 ML in SODIUM CHL 0.9% 500 ML IV ONE (09:15)
[2020-01-11] MEDS ORDERED: LORazepam 2MG/ML-1ML VIAL IV PRN (10:45)
--- NOTE | 2020-01-11 14:40 | NUR ---
MS admit from ER RITESHTHEE admitted to tele/MS after SBAR received. Patient in on 3L NC, no signs or symptoms of distress noted at this time. Family at bedside. Vital signs assessed. Patient up on specialty air mattress. Bed in low and locked position. Will continue to monitor Q1 hour and PRN.
[2020-01-11 15:08] VITALS: BP 94/65
--- NOTE | 2020-01-11 16:30 | NUR ---
assessment Patient is a 69 year old male who was confused. Per patients son Vitor prior to admission patient lived home alone and functioned independently. Patient has a fww and a wheelchair for home use. Patients PCP is Dr Nuñez. I spoke with Vitor over the phone and informed him of patients ss consult for hospice. I read Vitor a list of medicare providers. Per Vitor he wants to speak with the agency Dr Crane suggested [facility]. order has been sent to [facility]. Kenna met with Vitor and he agreed to hospice and signed consents. [facility] will be looking for placement. Waiting on placement and discharge now. [facility] phone number [phone]. Addendum: 01/11/20 at 1638 by Mili CARTWRIGHT Amended: Links added.
[2020-01-11 17:00] VITALS: BP 97/68
--- NOTE | 2020-01-11 19:21 | NUR ---
Closing Note Report given to slot shift supervisor RN. No signs or symptoms of distress noted at this time. Son at bedside
--- NOTE | 2020-01-11 19:30 | NUR ---
Opening Shift Note Assumed care of patient, patient opens eyes when his name is called or touched. patient has lau catheter draining. patient has rectal tube in place. patient has iv that is patent .Optifoam and dressing to site per md orders. son adithya at bedside. rr 20 even and unlabored. No S/S of distress/SOB or pain. Instructed on POC and to call for assist PRN, will continue to monitor for changes Q1hr and PRN. bed in low position and call light within reach
[2020-01-11 20:00] VITALS: BP 107/73
[2020-01-11 22:35] VITALS: BP 109/73
--- NOTE | 2020-01-12 03:42 | NUR ---
PARTIAL BED BATH PROVIDED TO PATIENT. . NEW LINEN AND GOWN CHANGE DONE. ORAL CARE PERFORMED. JOYCE PATENT AND DRAINING. RECTAL TUBE TENT AND DRAINING , NEW BAG PLACED. IV PATENT. PATIENT IS MEDSURG BUT TELEMONITOR OBTAIN TO MEASURE PATIENT HEART RATE. PATIENT IS DNR . TELE BOX 25. PATIENT REPOSITIONED TO COMFORT AND PRESSURE AREAS OFFLOADED ONTO PILLOWS. BED IN LOW POSITION CALL LIGHT WITHIN REACH. SON AT BEDSIDE.
[2020-01-12 05:31] VITALS: BP 103/71
--- NOTE | 2020-01-12 07:00 | NUR ---
REPORT GIVEN TO DAYSHIFT RN. PATIENT SHOWS NO SIGNS OF DISTRESS/SOB OR PAIN. DRESSING C/D/I.
[2020-01-12 08:38] VITALS: BP 107/71
[2020-01-12 13:00] VITALS: BP 107/65
[2020-01-12 16:44] VITALS: BP 120/76
--- NOTE | 2020-01-12 19:20 | NUR ---
Opening Shift Note Assumed care of patient. Patient is sleeping. Family at bedside. No S/S of distress or pain. Instructed family on POC and to call for assist PRN, will continue to monitor for changes PRN. Bed locked in lowest position and bed rails up x2. Call light within reach.
[2020-01-12 22:00] VITALS: BP 119/75
[2020-01-13 05:00] VITALS: BP 112/67
--- NOTE | 2020-01-13 07:30 | NUR ---
Opening Shift Note Assumed care of patient,ASLEEP. No S/S of distress/SOB or pain. PT'S SON AT BEDSIDE. Insructed on POC and to callfor assist PRN, will continue to monitor for changes Q1hr and PRN.
[2020-01-13 08:35] VITALS: BP 113/66
[2020-01-13 13:21] VITALS: BP 112/68
[2020-01-13 16:57] VITALS: BP 131/76
--- NOTE | 2020-01-13 19:10 | NUR ---
Opening Shift Note Assumed care of patient. Patient is sleeping with at bedside. No S/S of distress or pain. Instructed family on POC and to call for assist PRN, will continue to monitor for changes PRN. Bed locked in lowest position and bed rails up x2. Call light within reach.
--- NOTE | 2020-01-13 19:30 | NUR ---
CLOSING NOTES PT RESTING IN BED. NO DISTRESS NOTED. HOB ELEVATED. SUCTION AT BEDSIDE. FAMILY AT BEDSIDE. INSTRUCTED FAMILY TO CALL FOR ASSIST NEEDED. VERBALIZED UNDERSTANDING.
--- NOTE | 2020-01-13 21:44 | NUR ---
Rounded on patient Rounded on patient. Patient at bedside. No distress noted from patient. Will continue to monitor for changes. Patient unresponsive. Made aware to push call light for any questions and/or concerns.
[2020-01-13 22:00] VITALS: BP 129/76
--- NOTE | 2020-01-13 23:00 | NUR ---
Rounded on patient Rounded on patient. Patient at bedside. No distress noted from patient. Will continue to monitor for changes.
--- NOTE | 2020-01-14 04:01 | NUR ---
Repositioned Repositioned patient to left side. Patient tolerated well with no signs of distress. at bedside. Harmon catheter and rectal tube in place. 300ml of urine output emptied and no bowel movement. Vitals stable. Will continue to monitor for changes.
[2020-01-14 05:00] VITALS: BP 132/72
[2020-01-14 09:00] VITALS: BP 113/72
--- NOTE | 2020-01-14 09:50 | NUR ---
Repositioned Repositioned patient to right side. Patient tolerated well with no signs of distress. at bedside. Harmon catheter, patent, no kinks, draining to gravity. Rectal tube in place with minimal green liquid in bag. Will continue to monitor for changes.
--- NOTE | 2020-01-14 11:46 | NUR ---
NUTRITION CONSULT/ASSESSMENT NOTES Please refer to link notes of nutrition screen form filed under the intervention section of the plan of care for further details. Est. Needs: 2000 kcal to 2400 kcal (30-35 kcal/kgBW), 48 gms to 64 gms pro (0.6-0.8 gm/kgBW). Will continue to monitor pertinent labs and reassess nutrient needs prn Thank you for this consult. Addendum: 01/14/20 at [address] Amended: Links added.
[2020-01-14 13:00] VITALS: BP 119/74
[2020-01-14 17:00] VITALS: BP 83/50
--- NOTE | 2020-01-14 17:22 | NUR ---
re-assessment Patient is now discharged. Patient will be transported by [facility] at 730pm to [facility] [place]. Per Patients son Vitor he verbalized understanding and agreed to discharge plan to [facility] hospice. Larisa GREGORY has been notified. Addendum: 01/14/20 at 1726 by Mili CARTWRIGHT Amended: Links added.
[2020-01-14 17:36] VITALS: BP 83/50
--- NOTE | 2020-01-14 17:50 | NUR ---
REPORT REPORT GIVEN TO IRVING AT [facility] . ALL QUESTIONS/CONCERNS ANSWERED
--- NOTE | 2020-01-14 18:14 | NUR ---
MIRELLA SAUER, SON, NOTIFIED OF PATIENT TRANSFER TO [facility]
--- NOTE | 2020-01-14 18:30 | NUR ---
TRANSPORT REMOVAL OF CENTRAL LINE, RECTAL TUBE. WOUND PHOTOS TAKEN. PATIENT TOLERATED WELL. WILL CONTINUE TO MONITOR
--- NOTE | 2020-01-14 19:00 | NUR ---
REPORT ENDORSED CARE TO SAUMYA SUBRAMANIAN RN RE: PATIENT STATUS, REPORT, AND TRANSGER. ALL QUESTIONS/CONCERNS ANSWERED. AT BEDSIDE
--- NOTE | 2020-01-14 19:20 | NUR ---
Opening Shift Note Assumed care of patient. Patient is sleeping with at bedside. No S/S of distress or pain noted. Instructed family on POC and to call for assist PRN, will continue to monitor for changes PRN. Bed locked in lowest position and bed rails up x2. Call light within reach.
--- NOTE | 2020-01-14 19:44 | NUR ---
Transportation arrived to take patient to [facility]. No s/s of distress or SOB noted at this time. at bedside.
== END 2020-01-14 19:49 | disposition hospice, inpatient (51) | DRG 441 ==
LOC: EDBD 21:33 → ER 21:33 → TELE 21:34 → TELE-CENTR 01-11 14:52 → CENTRAL 01-11 14:54
PROVIDERS: ADMIT Hospitalist; ATTEND Internal Medicine
PROC: 30233K1 Transfusion of Nonautologous Frozen Plasma into Peripheral Vein, Percutaneous Approach (ICD-10-PCS; principal; 2020-01-09)
PROC: 30233N1 Transfusion of Nonautologous Red Blood Cells into Peripheral Vein, Percutaneous Approach (ICD-10-PCS; 2020-01-09)
DX: K72.91 Hepatic failure, unspecified with coma (principal); R57.1 Hypovolemic shock; E43 Unspecified severe protein-calorie malnutrition; N18.6 End stage renal disease; D61.818 Other pancytopenia; K86.1 Other chronic pancreatitis; N39.0 Urinary tract infection, site not specified; I12.0 Hypertensive chronic kidney disease with stage 5 chronic kidney disease or end stage renal disease; Z51.5 Encounter for palliative care; K70.31 Alcoholic cirrhosis of liver with ascites; Z66 Do not resuscitate; E16.2 Hypoglycemia, unspecified; R62.7 Adult failure to thrive; D63.8 Anemia in other chronic diseases classified elsewhere; D50.9 Iron deficiency anemia, unspecified; E87.6 Hypokalemia; E11.22 Type 2 diabetes mellitus with diabetic chronic kidney disease; F03.90 Unspecified dementia, unspecified severity, without behavioral disturbance, psychotic disturbance, mood disturbance, and anxiety; Z68.28 Body mass index [BMI] 28.0-28.9, adult
CPT/HCPCS: 36415; 36600; 70450; 71045; 76700; 80048; 80053; 80061; 80307; 80320; 81001; 82140; 82550; 82805; 82962; 83036; 83605; 83735; 84484; 85014; 85018; 85025; 85610; 85730; 86141; 86704; 86706; 86708; 86803; 86850; 86900; 86901; 86920; 87040; 87077; 87081; 87186; 87340; 96361; 96365; 96367; 99291; G0378; J0696; J2001; J2543; J3430; J3480; J7042; J7060; P9047